=== PATIENT | male | born 1985 | race African-American/Black ===

== ENCOUNTER 2018-08-26 15:56 | Emergency (ER) | payer SELFPAY ==
[2018-08-26 15:56] VITALS: BP 175/114; PULSE 106; RESP 16; TEMP 36.4; O2SAT 100; BMI 24.0
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
[2018-08-26] MEDS: Diphth,Pertuss(Acell),Tet Vac 0.5 ML Vial IM (16:55)
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
== END 2018-08-26 17:24 | disposition home or self-care (01) ==
PROVIDERS: Emergency Provider Emergency Medicine; Family Provider Family Medicine; PCP Family Medicine
DX: S00.03XA Contusion of scalp, initial encounter (principal); S80.212A Abrasion, left knee, initial encounter; V89.2XXA Person injured in unspecified motor-vehicle accident, traffic, initial encounter; Y93.9 Activity, unspecified; Y92.410 Unspecified street and highway as the place of occurrence of the external cause; Y99.9 Unspecified external cause status; Z23 Encounter for immunization; I10 Essential (primary) hypertension; E11.9 Type 2 diabetes mellitus without complications; Z72.0 Tobacco use
CPT/HCPCS: 70450; 90715; 99283; A4216

== ENCOUNTER 2021-08-21 03:40 | Emergency (ER) | payer MEDICAID, SELFPAY ==
[2021-08-21 03:40] VITALS: BP 186/119; PULSE 105; RESP 18; TEMP 36.9; O2SAT 100; BMI 26.6
--- NOTE | 2021-08-21 03:57 | EX.ED.DYSGE1 ---
HPI History of Present Illness Chief Complaint: Sore Throat Informant: patient Narrative Narrative: Patient states that he started with a sore throat on Thursday sometime in the afternoon. He got a little worse on Thursday and now he came in early this morning. Its been going on for about 36 hours. He is able to eat and drink but it hurts to do so. He has had mild subjective fevers but none documented. No chest pain. He is handling secretions okay. Swallowing makes it worse and nothing specific makes it better. He has no known exposures. He states the whole throat hurts. Is not more sore on one side than the other. Of note, his blood pressure is up. But he has not taken his amlodipine or lisinopril today. Past medical history includes high blood pressure and mild diabetes Medication list reviewed No known allergies No recent surgeries Lives independently. [facility] Medical History (Updated 08/21/21 @ 03:[address] Arcadio Gama MD) Diabetes Hypertension no medical history Home Medications amlodipine 10 mg PO DAILY 08/21/21 [History Last Taken Unknown] glimepiride 2 mg PO DAILY 08/21/21 [History Last Taken Unknown] lisinopril 40 mg PO DAILY 08/21/21 [History Last Taken Unknown] metformin 1,000 mg PO BID 08/21/21 [History Last Taken Unknown] penicillin V potassium 500 mg PO 4X/DAY #40 tab 08/21/21 [Rx Last Taken Unknown] tramadol 50 mg PO Q6H PRN 3 Days #10 tab 08/21/21 [Rx Last Taken Unknown] Allergy/AdvReac Type Severity Reaction Status Date / Time No Known Allergies Allergy Verified 08/21/21 03:43 Surgical History History of tonsillectomy and adenoidectomy Social History Smoking Status: Current every day smoker tobacco type: cigarettes ROS ROS ED Constitutional Constitutional ED: Reports subjective ENT ENT ED: Reports sore throat; Denies ear pain or rhinorrhea Cardiovascular Cardiovascular: Denies chest pain or palpitations Respiratory/Chest Respiratory/Chest: Denies cough, dyspnea or sputum Gastrointestinal Gastrointestinal: Denies nausea or vomiting Musculoskeletal Musculoskeletal: Denies neck pain Integumentary Denies rash Neurologic Neurologic: Denies headache(s), paresthesias or weakness Allergic/Immunologic Allergic/Immunologic ED: Denies mouth swelling, tongue swelling or urticaria EXAM Physical Exam Const Vital Signs: 08/21/21 03:40 Temperature 98.4 F Temperature Source Oral Pulse Rate 105 H Respiratory Rate 18 Blood Pressure 186/119 H Blood Pressure Mean 141 Pulse Ox 100 Oxygen Delivery Method Room Air Positive well nourished and well developed General Appearance ED: well developed and NAD HEENT Reports moist mucous membranes HEENT Narrative: Patient does have strep odor in his mouth. He does have some exudate. He has reportedly had tonsils removed but there is some tonsillar tissue left. There is no asymmetry. Uvula hangs midline. No hot potato voice. He handles secretions normally. No dental pain. No sign of abscess. No Ludewig's. Negative for trauma or tenderness Eyes PERRL and EOMs intact bilaterally Neck supple Neck Narrative: Patient does have some slight superior anterior cervical lymph nodes on both sides. They are mild. There is no asymmetry. They are not large. There is no stridor. Chest Wall inspection of chest normal Resp normal respiratory effort and clear to auscultation bilaterally Cardio regular rate and regular rhythm GI non-tender Palpation: soft Back/Spine no CVA tenderness Neuro oriented x3 Sensorium / Orientation: alert Psych mental status grossly normal Skin no rashes or lesions noted MDM MDM MDM Narrative Medical decision making narrative: Patient has reported fevers at home. He has some exudate. He has isolated sore throat without other symptoms. He has strep odor to his breath. We will treat him as a strep pharyngitis. He will be given a dose of Decadron. He is about 36 hours into this. There is no clinical indication of abscess formation. I explained that if he gets worsening pain, swelling, lateralizing pain or inability to swallow foods or liquids he should return. Discharge Plan Triage Chief Complaint: Sore Throat ED Provider: Arcadio Gama Dx/Rx/DC Orders Clinical Impression: Pharyngitis, streptococcal, acute Instructions: ED Pharyngitis, Strep (Presumed) Prescriptions: New penicillin V potassium 250 MG tablet 500 mg PO 4X/DAY Qty: 40 RF: 0 tramadol 50 mg tablet 50 mg PO Q6H PRN (Reason: pain) 3 Days Qty: 10 RF: 0 No Action glimepiride 2 mg Tablet 2 mg PO DAILY RF: 0 amlodipine 10 mg Tablet 10 mg PO DAILY RF: 0 metformin 1,000 mg tablet 1,000 mg PO BID RF: 0 lisinopril 40 mg Tablet 40 mg PO DAILY RF: 0 Primary Care Provider: Jarrett Gracia Referrals: Jarrett Gracia MD [Primary Care Provider] - 3-5 Days if not improving Disposition Disposition: Home, Self Care
[2021-08-21] MEDS: Penicillin Vk 250 MG Tablet 500 MG PO (04:13)
[2021-08-21 04:22] VITALS: BP 116/111; PULSE 106; RESP 20; O2SAT 98
[2021-08-21] MEDS: dexAMETHasone 4 MG Tablet 10 MG PO (04:22)
--- NOTE | 2021-08-21 04:45 | ED.RN ---
patients s/o upset with noise level at the nurses station. advising staff that we do not care for the patient or his condition. s/o advised that patient is being registered and once registration was done nurse would be in with medications waiting for pharmacy to conform medications. at this time s/o yelling and cussing at registration. registration walked out of room and this nurse walked in with medications for patient. s/o wanted name of this nurse. provided name as Justo and I am the charge nurse rell. s/o asked why no one else wanted to come in. I advised due to her behavior no one wanted to come in and the charge nurse would be taking care of him. S/o wanted last name of this nurse. Advised s/o that we do not give out last names that Justo would be appropriate if she would like to file a complaint. Patient at this time has not said a word about patient care or concern. Patient given medication. S/o out at the nursing staff and was witnessed recording via video asking again for last name of this nurse. fellow staff refused to give last name. I spoke with s/o and advised we do not give out last names. patient given discharge instructions and no concerns from patient were addressed patient expressed verbal understanding of discharge instructions.
== END 2021-08-21 04:23 | disposition home or self-care (01) ==
PROVIDERS: Emergency Provider Emergency Medicine; PCP Family Medicine
DX: J02.0 Streptococcal pharyngitis (principal); F17.210 Nicotine dependence, cigarettes, uncomplicated; E11.9 Type 2 diabetes mellitus without complications; I10 Essential (primary) hypertension; Z79.84 Long term (current) use of oral hypoglycemic drugs
CPT/HCPCS: 99283

== ENCOUNTER 2021-12-17 13:05 | Emergency (ER) | payer MEDICAID, SELFPAY ==
[2021-12-17 13:06] VITALS: BP 162/105; PULSE 106; RESP 17; TEMP 36.7; O2SAT 100; BMI 27.2
--- NOTE | 2021-12-17 13:07 | ED.RN ---
PT STATES THE BITE TOOK PLACE IN [facility]
--- NOTE | 2021-12-17 13:08 | RAD_ITS ---
STUDY: X-RAY - LEFT RADIUS AND ULNA REASON FOR EXAM: Male, 36 years old. Dog bite mid forearm. TECHNIQUE: 2 view(s) of the forearm. COMPARISON: None. FINDINGS: There is no demonstrated soft tissue swelling. No radiopaque foreign body is seen. Normal visualized radius. Normal visualized ulna. RAD/Forearm 2 Views IMPRESSION: Normal x-ray examination of the radius and ulna. Electronically Signed: Hesham Garza MD at 14:08 EST ,
--- NOTE | 2021-12-17 15:24 | EX.ED.GENINJ ---
HPI History of Present Illness Chief Complaint: Bite Informant: patient Narrative Narrative: Patient was bit by a friend's dog last night about 10 PM. He states the dog was acting fine and then suddenly just bit his left arm. He states it is a rescue dog with some challenges. As a rescue, it would have up-to-date immunizations and was overall acting normally. Patient has no numbness tingling or weakness. It did break the skin in several areas. The area has been cleaned. [facility] Medical History (Updated 12/17/21 @ 15:[address] Arcadio Gama MD) Diabetes Hypertension Home Medications amlodipine 10 mg PO DAILY 08/21/21 [History Last Taken Unknown] glimepiride 2 mg PO DAILY 08/21/21 [History Last Taken Unknown] lisinopril 40 mg PO DAILY 08/21/21 [History Last Taken Unknown] metformin 1,000 mg PO BID 08/21/21 [History Last Taken Unknown] amoxicillin-pot clavulanate 1 tab PO BID #10 tab 12/17/21 [Rx Last Taken Unknown] Allergy/AdvReac Type Severity Reaction Status Date / Time No Known Allergies Allergy Verified 08/21/21 03:43 Surgical History History of tonsillectomy and adenoidectomy Social History Smoking Status: Current every day smoker tobacco type: cigarettes ROS ROS ED Constitutional Constitutional ED: Denies chills or fever(s) Musculoskeletal Musculoskeletal: Reports other Details: Dog bite left forearm as in history of present illness. Integumentary Reports Abrasions and other Details: Abrasions and slight puncture to left forearm. Neurologic Neurologic: Denies paresthesias or weakness Endocrine Endocrinology: Denies polydipsia or polyuria Hematologic/Lymphatic Hematologic/Lymphatic: Denies easy bleeding or easy bruising EXAM Physical Exam Const Vital Signs: 12/17/21 13:06 Temperature 98.1 F Temperature Source Temporal Pulse Rate 106 H Respiratory Rate 17 Blood Pressure 162/105 H Blood Pressure Mean 124 Pulse Ox 100 Oxygen Delivery Method Room Air Positive well nourished General Appearance ED: NAD HEENT atraumatic Resp normal respiratory effort Extremity Extremity Narrative: Patient has a puncture on the left forearm that is about 4 mm long. There are also several abrasions near it. This is consistent with his injury. There is no significant erythema or streaking. No lymphatic streaking up the arm. No proximal lymphadenopathy. Neuro moves all extremities and no sensory deficits noted Sensorium / Orientation: alert Motor Exam: strength 5/5 throughout Psych mental status grossly normal Skin Skin Narrative: Abrasions as above. MDM MDM MDM Narrative Medical decision making narrative: Patient has a dog bite that about 17 hours old. No indication for need for rabies. The area has been cleaned. We will start Augmentin for about 5 days. We discussed signs of infection and reasons to return. 2 view x-ray of the forearm read by radiology and looked at by me shows no sign of acute process. No fracture. No radiodense foreign body. Radiography Diagnostic Testing: Clinical Impression(s) from Imaging Studies Forearm X-Ray 12/17/21 13:08 IMPRESSION: Normal x-ray examination of the radius and ulna. Electronically Signed: Hesham Garza MD at 14:08 EST , Discharge Plan Triage Chief Complaint: Bite ED Provider: Arcadio Gama Dx/Rx/DC Orders Clinical Impression: Dog bite of left forearm Instructions: ED Dog Bite Prescriptions: New amoxicillin-pot clavulanate 875-125 mg tablet 1 tab PO BID Qty: 10 RF: 0 No Action glimepiride 2 mg Tablet 2 mg PO DAILY RF: 0 amlodipine 10 mg Tablet 10 mg PO DAILY RF: 0 metformin 1,000 mg tablet 1,000 mg PO BID RF: 0 lisinopril 40 mg Tablet 40 mg PO DAILY RF: 0 Primary Care Provider: Jarrett Gracia Referrals: Jarrett Gracia MD [Primary Care Provider] - 3-5 Days if not improving Disposition Disposition: Home, Self Care
[2021-12-17] MEDS: Amox/Clavulanate 875 MG Tablet PO (15:35)
[2021-12-17 15:36] VITALS: RESP 18
== END 2021-12-17 15:37 | disposition home or self-care (01) ==
LOC: ED 15:34
PROVIDERS: Emergency Provider Emergency Medicine; PCP Family Medicine; Visit Provider Emergency Medicine
DX: S51.832D Puncture wound without foreign body of left forearm, subsequent encounter (principal); E11.9 Type 2 diabetes mellitus without complications; W54.0XXD Bitten by dog, subsequent encounter; I10 Essential (primary) hypertension; F17.210 Nicotine dependence, cigarettes, uncomplicated
CPT/HCPCS: 73090; 99283

== ENCOUNTER 2022-05-08 09:41 | Outpatient (RCR) | payer MEDICAID, SELFPAY ==
[2022-05-08 13:18] VITALS: BP 117/87; PULSE 74; TEMP 36.1
--- NOTE | 2022-05-08 13:44 | HP.PCM_ITS ---
History of Present Illness Date of Service: 05/08/22 Chief Complaint: Subfourth metatarsal ulceration right foot History of Wound: This is a 37-year-old male who presents to the wound care center by referral of Dr. Miguel Angel DPM. Patient has history of diabetes with a previous A1c of 9.8% currently down to 7.5%. Patient is a former smoker who has stopped smoking within the last few months. He does currently use marijuana daily. He has an ulceration to the plantar fourth metatarsal head of the right foot with callus to the subfirst metatarsal head and subfifth metatarsal head of the right foot. He also has callus subfirst metatarsal head and subfourth metatarsal head of the left foot. He is currently being offloaded in a cam walker with Pegasus offloading pad to the right foot in a surgical shoe with Pegasus offloading pad to the left foot. He did undergo biopsy of the ulceration site by Dr. Michelle which was negative. Patient has been noncompliant in his offloading to both feet preferring to wear tennis shoes or going barefoot with a sock. Previous treatments consist of Aquacel, Santyl, and Geri. He was referred to the wound care center for a second opinion on wound care products versus surgical procedure to aid in offloading and reducing pressure at the forefoot. [facility] Medical History (Updated 05/08/22 @ 14:[address] Puma Otero DPM) Diabetes Hypertension Home Medications amlodipine 10 mg tablet 10 mg PO DAILY 08/21/21 [History Last Taken Unknown] glimepiride 2 mg tablet 2 mg PO DAILY 08/21/21 [History Last Taken Unknown] lisinopril 40 mg tablet 40 mg PO DAILY 08/21/21 [History Last Taken Unknown] metformin 1,000 mg tablet 1,000 mg PO BID 08/21/21 [History Last Taken Unknown] amoxicillin 875 mg-potassium clavulanate 125 mg tablet 1 tab PO BID #10 tabs 12/17/21 [Rx Last Taken Unknown] Allergy/AdvReac Type Severity Reaction Status Date / Time No Known Allergies Allergy Verified 08/21/21 03:43 Surgical History History of tonsillectomy and adenoidectomy Social History Smoking Status: Current every day smoker tobacco type: cigarettes ROS Constitutional Constitutional: Denies chills, fatigue, fever(s) or malaise Eyes Eyes: Denies blurry vision, change in vision or double vision ENT HEENT: Denies dysphagia, nasal congestion, nasal discharge or sore throat Cardiovascular Cardiovascular: Denies chest pain, claudication or dyspnea Respiratory/Chest Respiratory/Chest: Denies cough, productive cough or shortness of breath at rest Gastrointestinal Gastrointestinal: Denies abdominal pain, constipation, diarrhea, nausea or vomiting Genitourinary Genitourinary: Denies dysuria, hematuria, urinary frequency or urinary hesitancy Musculoskeletal Musculoskeletal: Denies joint pain, joint stiffness, joint swelling, numbness or tingling Integumentary Integumentary: Denies jaundice, nail changes, pruritus or rash Neurologic Neurologic: Denies dizziness, headache(s), seizures or weakness Psychiatric Psychiatric: Denies anxiety or depression Endocrine Endocrinology: Denies cold intolerance, heat intolerance, polydipsia or polyuria Hematologic/Lymphatic Hematologic/Lymphatic: Denies easy bleeding or easy bruising Vital Signs Vital Signs Vital Signs: 05/08/22 13:18 Temperature 97.0 F L Temperature Source Temporal Pulse Rate 74 Blood Pressure 117/87 H Blood Pressure Mean 97 Blood Pressure Source Monitor Blood Pressure Position Semi-Fowlers Blood Pressure Location Right Arm Physical Exam Const alert, oriented x3 and no apparent distress General Appearance: cooperative and comfortable HEENT normocephalic Eyes General Eye: normal appearance of both eyes Neck General: normal visual inspection Lymph Lymphatic: no lymphadenopathy noted and no lymphedema noted Chest inspection of chest normal Resp normal respiratory effort Cardio regular rate and regular rhythm GI soft to palpation and non-tender Back/Spine no CVA tenderness and normal ROM Extremity normal capillary refill, no joint enlargement, no calf tenderness and no pedal edema Peripheral Pulses: Yes posterior tibial pulses present bilateral and dorsalis pedis pulses present bilateral Skin no rashes or lesions noted, skin turgor normal and no jaundice Wound Narrative: Right foot: Subfourth metatarsal ulceration measuring 1 cm x 0.7 cm x 0.2 cm with hyperkeratotic rim. No signs of infection. Callus/hyperkeratotic tissue that is preulcerative noted to the subfirst metatarsal head and subfifth metatarsal head. No signs of infection Left foot: Callus/hyperkeratotic tissue that is pre-ulcerative noted to the subfirst metatarsal head and subfourth metatarsal head. No signs of infection. Neuro oriented x3 and moves all extremities Motor Exam: strength 5/5 throughout Psych cooperative and affect normal Debridement Note Debridement Note Wound debrided: Subfourth metatarsal Laterality: Right Wound Grade/Stage: Morales stage I Type of Debridement: Excisional debridement Anesthesia Used: 5% Lidocaine Gel Depth: Down to and including healthy tissue and in the subcutaneous layer Percentage of wound debrided: 100 Instrument Used: #15 blade Tissue Removed: Fibrous, devitalized subcutaneous, biofilm, slough Severity: Fat Layer Exposed Amount of bleeding with debridement: Mild Bleeding Controlled with: Compression and gauze Patient tolerated procedure: Patient tolerated procedure well Post-Debridement Measurements and Additional Note: Post-Debridement Measurements/Treatment - Nurse 1 - General Ulcer Assessment Start: 05/08/22 11:53 Freq: Status: Active Protocol: FAB Activity Type Activity Date Activity User E-sign Co-sign Detail Recorded Client Recorded Date Recorded By Document 05/08/22 13:18 ADENIKE [id number] 05/08/22 13:21 ADENIKE 05/08/22 13:18 - Today's Visit Information Type of service Follow-up Visit (Physician/DOOR REPAIRMAN ) Arrival Mode Ambulatory Patient Identification Verified (Name & Yes ) Vital Signs Temperature (97.8 F-99.1 F) 97.0 F L Temperature Source Temporal Pulse Rate (60-100) 74 Pulse Location Monitor Blood Pressure (90/60-120/80) 117/87 H Blood Pressure Mean 97 Source Monitor Position Semi-Fowlers Blood Pressure Location Right Arm History Since Last Visit- (Skip if this is Patient's initial visit) Have you changed medications since your No last visit? Any new allergies or adverse reactions No Had a fall/change in ADL's that may No increase risk of falls Signs or symptoms of abuse and/or No neglect since last visit Have you been in the hospital since your No last visit? Has dressing in place as prescribed Yes Has compression in place as prescribed N/A Has offloadiing in place as prescribed N/A Experienced any changes in pain level or No management Left Footwear Regular Shoe Right Footwear Regular Shoe Pain Scale: 0-10 Numeric Is Patient Pain Free? Yes - Nurse 1 - General Ulcer Measurement Start: 05/08/22 11:53 Freq: Status: Active Protocol: Activity Type Activity Date Activity User E-sign Co-sign Detail Recorded Client Recorded Date Recorded By Document 05/08/22 13:18 ADENIKE [id number] 05/08/22 13:21 ADENIKE 05/08/22 13:18 Wound Center Nurse 1 #1 Right Foot -Current Size (cm) - Length 0.2 -Current Size (cm) - Width 0.5 -Current Size (cm) - Depth 0.3 -Total Square Cm 0.10 -Exudate Amt Medium -Exudate Type Serosanguineous -Wound Margin Distinct, Outline Attached -Granulation Amt Large (67-100%) -Granulation Quality Red -Necrosis Amt None Present (0 %) -Texture (Mirlande-wound Skin Appearance) Assessed, Scarring -Moisture ([place]-wound Skin Appearance) No Abnormality, Assessed -Color ([place]-wound Skin Appearance) No Abnormality, Assessed -Temperature ([place]-wound Skin No Abnormality Appearance) (Pt Warm) -Tenderness on Palpation ([place]-wound No Skin Appearance) -Ulcer Cleansing Rinsed/ Irrigated with Saline -Foul Odor after Cleansing No -Anesthetic Used 5% Lidocaine Gel Assessment/Plan Assessment/Plan (1) Chronic ulcer of right foot with fat layer exposed: CODE(S): L97.512 - Non-pressure chronic ulcer of other part of right foot with fat layer exposed (2) Callus under metatarsal head: CODE(S): L84 - Corns and callosities (3) Equinus deformity of right foot: CODE(S): M21.6X1 - Other acquired deformities of right foot (4) Equinus deformity of left foot: CODE(S): M21.6X2 - Other acquired deformities of left foot (5) Hammer toe of right foot: CODE(S): M20.41 - Other hammer toe(s) (acquired), right foot (6) Hammertoe of left foot: CODE(S): M20.42 - Other hammer toe(s) (acquired), left foot (7) Diabetes: CODE(S): E11.9 - Type 2 diabetes mellitus without complications (8) Fat pad atrophy of foot: CODE(S): L90.9 - Atrophic disorder of skin, unspecified PLAN: Plan Patient seen and evaluated Left foot: Pre-ulcerative hyperkeratotic lesions subfirst metatarsal head and subfourth metatarsal head. These are currently closed with no signs of infection. I discussed with him how these could become potential wounds if not properly offloaded. He is currently offloading with surgical shoe with Pegasus offloading insert. I examined insert which was inadequately offloading these ulcerative sites. I removed more of the pegs to properly offload and added plantar offloading padding. He was instructed to continue use of his urea cream to the sites. Right foot: Ulceration subfourth metatarsal head measuring 1 cm x 0.7 cm x 0.2 cm. Ulceration demonstrates no signs of infection with a good granular base and a hyperkeratotic rim. Ulceration site underwent debridement as noted in clinical panel above. Preulcerative hyperkeratotic lesion subfirst metatarsal head and subfifth metatarsal head. These are currently closed with no signs of infection. He is currently offloading in a CAM boot with Pegasus offloading insert. I examined this offloading site and added additional offloading padding to the plantar aspect of the insert to properly offload the first, fourth, and fifth metatarsal heads. Ulceration site dressed with Geri, hydrogel, dry sterile dressing. I am considering epi fix graft placement at next visit. I discussed with him today proper glycemic control, continuing with not smoking, and wearing his offloading shoes at all times. Patient has history of being noncompliant in wearing his offloading shoes to both feet preferring basketball shoes or going barefoot/socks. I discussed with him today that being barefoot or wearing only socks does not provide adequate protection to the foot and places him at higher risk of wounds. I also stated that being diabetic with wounds places him at higher risk of infection which may lead to loss of limb. I also discussed how pressure reduction at the sites is essential and is the sanches to healing his wounds. He voices understanding of our discussion today. On examination he is also noted to have an equinus deformity of both legs with decreased fat pad to the forefoot. I discussed sending him to physical therapy to aid in improving his range of motion/stretching as well as developing a home exercise program to improve his range of motion in dorsiflexion to decrease forefoot pressure. Rx for physical therapy dispensed today. I discussed with him that if this does not work to aid in offloading that we may have to undergo a tendo Achilles lengthening to aid in decreasing pressure to the forefoot. Given his noncompliance of not adequately staying off his feet enough/wearing offloading shoes, I worry he may not be fully compliant post surgery. The following work up and care recommendations were made: Dressing: Geri, hydrogel, dry sterile dressing right foot Wash: Soap and water Tissue growth optimization: Geri and hydrogel Offload: Continue offloading in cam boot with plantar offloading pad to the right foot in surgical shoe with plantar offloading pad to the left foot Vascular: Palpable pedal pulses bilateral Edema: No pedal edema noted Infection: No signs of infection noted Pain: Pain is well controlled Host factors: DM type II, fat pad atrophy, equinus deformity bilateral, chronic marijuana use I answered all the patient's questions. To return to the wound healing center in 1 week or call sooner if the patient has any questions or concerns. Note: [employer] speech recognition air transportation provider software was used to create portions of this document. Sound-alike and misspelled words, as well as other air transportation provider errors may be contained in the documentation. The problems addressed require a low medical decision making level which includes two or more minor problems, a stable chronic illness, or an acute uncomplicated illness or injury. The medical decision making level is low. There is noted low risk of morbidity after considering this treatment plan and diagnostic data.
== END 2022-05-25 23:59 | disposition home or self-care (01) ==
LOC: WC 09:41
PROVIDERS: PCP Family Medicine; Visit Provider Student in an Organized Health Care Education/Training Program
DX: E11.621 Type 2 diabetes mellitus with foot ulcer (principal); L97.512 Non-pressure chronic ulcer of other part of right foot with fat layer exposed; M20.42 Other hammer toe(s) (acquired), left foot; M21.6X2 Other acquired deformities of left foot; M21.6X1 Other acquired deformities of right foot; Z87.891 Personal history of nicotine dependence; I10 Essential (primary) hypertension; M20.41 Other hammer toe(s) (acquired), right foot; L84 Corns and callosities; L90.9 Atrophic disorder of skin, unspecified
CPT/HCPCS: 11042; 99213; G0463

== ENCOUNTER 2022-06-09 11:30 | Outpatient (RCR) | payer MEDICAID, SELFPAY ==
--- NOTE | 2022-05-16 13:32 | HP.PTEVAL ---
Patient's Visit Information MEENU BOLIVAR is a 37 year old M referred to Physical Therapy by Dr. Puma Otero DPM with a diagnosis of . Date of Evaluation: 05/16/22 Physical Therapist: Mundo Lara, PT, Cert MDT, OCS - Visit Plan Frequency: 2x /Week Duration: 4 Weeks Plan: CAM BOOT ON PER MD. PT INTERVETIONS WITH FLEXABILITY G-S ,ROM ,ANKLE ,STRENGTHNEING ANKLE STABILZERS ,AND FUNCTION STRENGTHENING TO MINIMIZE TOE PRESSURE - Subjective This 37 y/o male presents to physical therapy with right foot pain. Patient has had problems with right foot ~ 1 year with ulcer bottom of foot for~ 1month seen DR Otero at wound clinic . Placed in CAM BOOT . Patient has had problems with callouses on foot, recommended PT for stretching and strengthening. CAM BOOT on until further notification . cleaned callouses. Denies paresthesia/tingling . Patient has x-rays at office. Patient condition affects function with gait and mobility. Patient states walking on forefoot causes this impairments. Patient goal return to walking and normal activity. Patient is diabetic. SOCAIL: unemployed. 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 SKIN: small ulcer plantar aspect of metatarsal great toe. NEURO: denies paresthesia/tingling-light touch intact. GAIT: ambulates with CAM boot with decrease stance time. AROM: dorsiflexion 10 from 0 ,plantarflexion 55 degrees, eversion 5 degrees , inversion 30 degrees. FLEXABILITRY: G-S MOD TIGHT. MMT : anteriortibialis ,posteriortibilas 4/5,pernous 4/5,G-S peak force 24.7 - Balance/Special Test Scores Lower Extremity Functional Score: 42 - Goals Goal 1:: Patient to be I with HEP for foot. Goal Time Frame: 4-6 Weeks Goal 2:: Patient to improve function by 50 % with gait .and ADLS' Goal Time Frame: 4-6 Weeks Goal 3:: Patient to improve peak force G-S by 5-10 to improve gait Goal Time Frame: 4-6 Weeks Goal 4:: Patient to improve G-S flexibility by increase DF by 5-10 degrees to decrease pressure great toe. Goal Time Frame: 4-6 Weeks Goal 5:: Patient to improve LFES score by 10 points to improve QOL Goal Time Frame: 4-6 Weeks - Rehabilitation Potential Physical Therapy Diagnosis: This patient has ulcer plantar aspect of great toe with decrease ROM, strength ,tight calf ,poor heealing thus impairs gait Rehabilitation Potential: Good - Anticipated Interventions Thank you for the opportunity to evaluate your patient. For Medicare and Medicare HMO plans, please review the plan of care and approve it. It will need to be FAXED BACK to us at [phone] for Medicare purposes. For Medicare only, by signing this I certify the plan of care. Please let me know if there are questions or concerns regarding this plan of care. Physician Signature: Date:
--- NOTE | 2022-09-26 08:16 | HP.PT.NRP ---
MEENU BOLIVAR was seen in my office for initial evaluation on 05/16/22. The following Plan of Care was established for this patient: Initial Frequency: 2x /Week Initial Duration: 4 Weeks This patient was last seen in our office . Pertinent comments regarding their Physical therapy will appear below: Patient was seen for PT chronic ulcer foot and acquired deformity for ROM /strengthening ,doing well thus is d/c At this point I will be discontinuing this patient from physical therapy. I would be happy to see this patient again in the future if found appropriate by the physician. Thank you! Mundo Lara, PT, Cert MDT, OCS Balance/Gait/Functional tests - Balance/Special Test Scores Lower Extremity Functional Score: 42
== END 2022-06-09 19:00 | disposition home or self-care (01) ==
LOC: PT 11:30
PROVIDERS: PCP Family Medicine; Referring Provider Student in an Organized Health Care Education/Training Program; Visit Provider Student in an Organized Health Care Education/Training Program
DX: L97.522 Non-pressure chronic 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 (principal); M21.6X1 Other acquired deformities of right foot; M21.6X2 Other acquired deformities of left foot
CPT/HCPCS: 97110; 97140; 97162

== ENCOUNTER 2022-06-19 08:15 | Outpatient (RCR) | payer MEDICAID, SELFPAY ==
[2022-05-26 00:38] VITALS: BP 117/87; PULSE 74; TEMP 36.1
[2022-06-12 08:26] VITALS: BP 155/78; PULSE 117; TEMP 36.1
--- NOTE | 2022-06-12 09:28 | PCM.WC.PN ---
History of Present Illness Date of Service: 06/12/22 Chief Complaint: Subfourth metatarsal ulceration right foot History of Wound: This is a 37-year-old male who presents to the wound care center by referral of Dr. Miguel Angel DPM. Patient has history of diabetes with a previous A1c of 9.8% currently down to 7.5%. Patient is a former smoker who has stopped smoking within the last few months. He does currently use marijuana daily. He has an ulceration to the plantar fourth metatarsal head of the right foot with callus to the subfirst metatarsal head and subfifth metatarsal head of the right foot. He also has callus subfirst metatarsal head and subfourth metatarsal head of the left foot. He is currently being offloaded in a cam walker with Pegasus offloading pad to the right foot in a surgical shoe with Pegasus offloading pad to the left foot. He did undergo biopsy of the ulceration site by Dr. Michelle which was negative. Patient has been noncompliant in his offloading to both feet preferring to wear tennis shoes or going barefoot with a sock. Previous treatments consist of Aquacel, Santyl, and Geri. He was referred to the wound care center for a second opinion on wound care products versus surgical procedure to aid in offloading and reducing pressure at the forefoot. Subjective Subjective This is a 37-year-old male who presents for follow-up to the wound care clinic with subfourth metatarsal ulceration of the right foot and subfourth metatarsal ulceration to the left foot. He has callus formation subfirst metatarsal head bilateral and to the subfifth metatarsal head of the right foot with history of wounds at the sites. He states he has been going to physical therapy to improve flexibility and range of motion at the ankle and has been performing the home exercises as instructed. He denies any constitutional symptoms today. He has no further complaints today. Objective Data Objective Data Vital Signs: Vital Signs Temp Pulse BP 97.0 F L 117 H 155/78 H 06/12/22 08:26 06/12/22 08:26 06/12/22 08:26 Physical Exam Const alert, oriented x3 and no apparent distress General Appearance: cooperative and comfortable HEENT normocephalic Eyes General Eye: normal appearance of both eyes Neck General: normal visual inspection Lymph Lymphatic: no lymphadenopathy noted and no lymphedema noted Chest inspection of chest normal Resp normal respiratory effort Cardio regular rate and regular rhythm Extremity normal capillary refill, no joint enlargement, no calf tenderness and no pedal edema Peripheral Pulses: Yes posterior tibial pulses present bilateral and dorsalis pedis pulses present bilateral Skin no rashes or lesions noted, skin turgor normal and no jaundice Wound Narrative: Right foot: Subfourth metatarsal ulceration measuring 1 cm x 1.0 cm x 0.2 cm with hyperkeratotic rim. Subfifth metatarsal ulceration measuring 0.6 cm x 0.4 cm x 0.1 cm no signs of infection. Callus/hyperkeratotic tissue that is preulcerative noted to the subfirst metatarsal head. No signs of infection to ulcerative sites Left foot: Callus/hyperkeratotic tissue that is pre-ulcerative noted to the subfirst metatarsal head.?No signs of infection. Ulceration noted to the subfourth metatarsal head with surrounding hyperkeratosis ulceration measures 1 cm x 1 cm x 0.2 cm. No signs of infection. Neuro oriented x3 and moves all extremities Debridement Note Debridement Note Wound debrided: Subfourth metatarsal right foot Laterality: Right Wound Grade/Stage: Morales stage I Type of Debridement: Excisional debridement Anesthesia Used: 5% Lidocaine Gel Depth: Down to and including healthy tissue and in the subcutaneous layer Percentage of wound debrided: 100 Instrument Used: 3mm curette and - (313 blade) Tissue Removed: Fibrous, devitalized subcutaneous, biofilm, slough Severity: Fat Layer Exposed Amount of bleeding with debridement: Mild Bleeding Controlled with: Compression and gauze Patient tolerated procedure: Patient tolerated procedure well Post-Debridement Measurements and Additional Note: Post-Debridement Measurements/Treatment - Nurse 1 - General Ulcer Assessment Start: 06/12/22 08:25 Freq: Status: Active Protocol: [email or web address] Activity Type Activity Date Activity User E-sign Co-sign Detail Recorded Client Recorded Date Recorded By Document 06/12/22 08:26 ADENIKE [id number] 06/12/22 08:27 ADENIKE 06/12/22 08:26 - Today's Visit Information Type of service Follow-up Visit (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 Any new allergies or adverse reactions No Had a fall/change in ADL's that may No increase risk of falls Signs or symptoms of abuse and/or No neglect since last visit Have you been in the hospital since your No last visit? Has dressing in place as prescribed Yes Has compression in place as prescribed N/A Has offloadiing in place as prescribed N/A Experienced any changes in pain level or No management Left Footwear Regular Shoe Right Footwear Regular Shoe Pain Scale: 0-10 Numeric Is Patient Pain Free? Yes SEBASTIEN - Nurse 1 - General Ulcer Measurement Start: 06/12/22 08:25 Freq: Status: Active Protocol: Activity Type Activity Date Activity User E-sign Co-sign Detail Recorded Client Recorded Date Recorded By Document 06/12/22 08:26 ADENIKE [id number] 06/12/22 08:27 ADENIKE 06/12/22 08:26 Wound Center Nurse 1 #1 Right Foot -Current Size (cm) - Length 1.2 -Current Size (cm) - Width 0.5 -Current Size (cm) - Depth 0.6 -Total Square Cm 0.60 -Exudate Amt Small -Exudate Type Serosanguineous -Wound Margin Distinct, Outline Attached -Granulation Amt Small (1-33%) -Granulation Quality [place] -Necrosis Amt Small (1-33%) -Necrotic Tissue Type Adherent Slough -Texture ([place]-wound Skin Appearance) Assessed,Callus ,Scarring -Moisture ([place]-wound Skin Appearance) No Abnormality, Assessed -Color ([place]-wound Skin Appearance) No Abnormality, Assessed -Temperature ([place]-wound Skin No Abnormality Appearance) (Pt Warm) -Tenderness on Palpation ([place]-wound No Skin Appearance) -Ulcer Cleansing Rinsed/ Irrigated with Saline -Foul Odor after Cleansing No -Anesthetic Used 5% Lidocaine Gel WC - Nurse 3 - General Ulcer D/C NN Start: 06/12/22 08:25 Freq: Status: Active Protocol: Activity Type Activity Date Activity User E-sign Co-sign Detail Recorded Client Recorded Date Recorded By Document 06/12/22 09:06 ADENIKE [id number] 06/12/22 09:07 ADENIKE 06/12/22 09:06 Wound Care Nurse 3 -Ulcer Cleansing Rinsed/ Irrigated with Saline -Primary Dressing Applied C Hydrogel ($), Promogran Geri Matter -Primary Dressing Covered/Secured with Dry Gauze, Secured with Tape -Promogran Geri Matter 1 Pain Scale: 0-10 Numeric Is Patient Pain Free? Yes WC - Visit Discharge Discharge Condition Stable Ambulatory Status Ambulatory Transportation Private Auto Additional Wound Wound debrided: Subfifth metatarsal right foot Laterality: Right Wound Grade/Stage: Morales stage I Type of Debridement: Excisional debridement Anesthesia Used: 5% Lidocaine Gel Depth: Down to and including healthy tissue and in the subcutaneous layer Percentage of wound debrided: 100 Instrument Used: 3mm curette and - (313 blade) Tissue Removed: Fibrous, devitalized subcutaneous, biofilm, slough Severity: Fat Layer Exposed Amount of bleeding with debridement: Mild Bleeding Controlled with: Compression and gauze Patient tolerated procedure: Patient tolerated procedure well Additional Wound Wound debrided: Subfourth metatarsal left foot Laterality: Left Wound Grade/Stage: Morales stage I Type of Debridement: Excisional debridement Anesthesia Used: 5% Lidocaine Gel Depth: Down to and including healthy tissue and in the subcutaneous layer Percentage of wound debrided: 100 Instrument Used: 3mm curette and - (313 blade) Tissue Removed: Fibrous, devitalized subcutaneous, biofilm, slough Severity: Fat Layer Exposed Amount of bleeding with debridement: Mild Bleeding Controlled with: Compression and gauze Patient tolerated procedure: Patient tolerated procedure well Assessment/Plan Assessment/Plan (1) Non-pressure chronic 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: CODE(S): L97.522 - Non-pressure chronic 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 (2) Chronic ulcer of right foot with fat layer exposed: CODE(S): L97.512 - Non-pressure chronic ulcer of other part of right foot with fat layer exposed (3) Diabetes: CODE(S): E11.9 - Type 2 diabetes mellitus without complications (4) Callus under metatarsal head: CODE(S): L84 - Corns and callosities (5) Equinus deformity of right foot: CODE(S): M21.6X1 - Other acquired deformities of right foot (6) Equinus deformity of left foot: CODE(S): M21.6X2 - Other acquired deformities of left foot (7) Fat pad atrophy of foot: CODE(S): L90.9 - Atrophic disorder of skin, unspecified (8) Hammer toe of right foot: CODE(S): M20.41 - Other hammer toe(s) (acquired), right foot (9) Hammertoe of left foot: CODE(S): M20.42 - Other hammer toe(s) (acquired), left foot PLAN: Plan Patient seen and evaluated Left foot: Pre-ulcerative hyperkeratotic lesions subfirst metatarsal head, this was debrided with a 313 blade. No underlying wound. Ulceration subfourth metatarsal head measures 1 cm x 1 cm x 0.2 cm. Ulceration underwent debridement as noted in clinical panel above. No signs of infection. He is currently offloading with surgical shoe with Pegasus offloading insert.? However I doubt he is wearing his offloading shoe to the left foot as he has history of noncompliance and going barefoot or in basketball shoes. Right foot: Ulceration subfourth metatarsal head measuring 1 cm x 1.0 cm x 0.2 cm.? Ulceration demonstrates no signs of infection with a good granular base and a hyperkeratotic rim.? Ulceration subfifth metatarsal head measures 0.6 cm x 0.4 cm x 0.1 cm. Ulceration sites underwent debridement as noted in clinical panel above.? Preulcerative hyperkeratotic lesion subfirst metatarsal head.?No signs of infection.? He is currently offloading in a CAM boot with Pegasus offloading insert.? I suspect noncompliance at this site as well as stated above due to increased size of the subfourth metatarsal ulceration and new open ulceration of the sub-fifth metatarsal. Ulceration sites dressed with Geri, hydrogel, dry sterile dressing.? I will considering epi fix graft placement at next visit. I discussed with him today proper glycemic control, continuing with not smoking, and wearing his offloading shoes at all times.? Patient has history of being noncompliant in wearing his offloading shoes to both feet preferring basketball shoes or going barefoot/socks. I discussed with him again today that being barefoot or wearing only socks does not provide adequate protection to the foot and places him at higher risk of wounds. I also stated that being diabetic with wounds places him at higher risk of infection which may lead to loss of limb.? I also discussed how pressure reduction at the sites is essential and is the sanches to healing his wounds. He voices understanding of our discussion today. I discussed the need to return for weekly debridement and not return whenever he feels like it. On examination he is also noted to have an equinus deformity of both legs with decreased fat pad to the forefoot.? He is attending physical therapy sessions to aid in improving his range of motion/stretching as well as developing a home exercise program to improve his range of motion in dorsiflexion to decrease forefoot pressure. I discussed with him that if this does not work to aid in offloading that we may have to undergo a tendo Achilles lengthening to aid in decreasing pressure to the forefoot. Given his noncompliance of not adequately staying off his feet enough/wearing offloading shoes, I worry he may not be fully compliant post surgery. The following work up and care recommendations were made: Dressing: Geri, hydrogel, dry sterile dressing right foot Wash: Soap and water Tissue growth optimization: Geri and hydrogel Offload: Continue offloading in cam boot with plantar offloading pad to the right foot in surgical shoe with plantar offloading pad to the left foot Vascular: Palpable pedal pulses bilateral Edema: No pedal edema noted Infection: No signs of infection noted Pain: Pain is well controlled Host factors: DM type II, fat pad atrophy, equinus deformity bilateral, chronic marijuana use ? I answered all the patient's questions.? To return to the wound healing center in 1 week or call sooner if the patient has any questions or concerns. Note: [employer] speech recognition wharf tender software was used to create portions of this document. Sound-alike and misspelled words, as well as other wharf tender errors may be contained in the documentation.
[2022-06-19 08:41] VITALS: BP 147/88; PULSE 66; TEMP 36.1
--- NOTE | 2022-06-19 09:34 | PN.PCM_ITS ---
History of Present Illness Date of Service: 06/19/22 Chief Complaint: Subfourth metatarsal ulceration right foot History of Wound: This is a 37-year-old male who presents to the wound care center by referral of Dr. Miguel Angel DPM. Patient has history of diabetes with a previous A1c of 9.8% currently down to 7.5%. Patient is a former smoker who has stopped smoking within the last few months. He does currently use marijuana daily. He has an ulceration to the plantar fourth metatarsal head of the right foot with callus to the subfirst metatarsal head and subfifth metatarsal head of the right foot. He also has callus subfirst metatarsal head and subfourth metatarsal head of the left foot. He is currently being offloaded in a cam walker with Pegasus offloading pad to the right foot in a surgical shoe with Pegasus offloading pad to the left foot. He did undergo biopsy of the ulceration site by Dr. Michelle which was negative. Patient has been noncompliant in his offloading to both feet preferring to wear tennis shoes or going barefoot with a sock. Previous treatments consist of Aquacel, Santyl, and Geri. He was referred to the wound care center for a second opinion on wound care products versus surgical procedure to aid in offloading and reducing pressure at the forefoot. Subjective Subjective This is a 37-year-old male who presents for follow-up to the wound care clinic with subfourth metatarsal ulceration of the right foot and subfourth metatarsal ulceration to the left foot.? He has callus formation subfirst metatarsal head bilateral and to the subfifth metatarsal head of the right foot with history of wounds at the sites.? He states he has been going to physical therapy to improve flexibility and range of motion at the ankle and has been performing the home exercises as instructed. He has remained in his offloading shoes to both feet. He denies any constitutional symptoms today.? He has no further complaints today. Objective Data Objective Data Vital Signs: Vital Signs Temp Pulse BP 97.0 F L 66 147/88 H 06/19/22 08:41 06/19/22 08:41 06/19/22 08:41 Physical Exam Const alert, oriented x3 and no apparent distress General Appearance: cooperative and comfortable HEENT normocephalic Eyes General Eye: normal appearance of both eyes Neck General: normal visual inspection Lymph Lymphatic: no lymphadenopathy noted and no lymphedema noted Chest inspection of chest normal Resp normal respiratory effort Cardio regular rate and regular rhythm Extremity normal capillary refill, no joint enlargement, no calf tenderness and no pedal edema Skin no rashes or lesions noted, skin turgor normal and no jaundice Wound Narrative: Right foot: Subfourth metatarsal ulceration measuring 0.5 cm x 0.5 cm x 0.2 cm with hyperkeratotic rim. Subfifth metatarsal ulceration has healed, no signs of infection. Callus/hyperkeratotic tissue that is preulcerative noted to the subfirst metatarsal head. No signs of infection to ulcerative sites Left foot: Callus/hyperkeratotic tissue that is pre-ulcerative noted to the subfirst metatarsal head.?No signs of infection. Ulceration noted to the subfourth metatarsal head with surrounding hyperkeratosis ulceration measures 0.4 cm x 0.3 cm x 0.1 cm. No signs of infection. Neuro oriented x3 and moves all extremities Debridement Note Debridement Note Wound debrided: Sub fourth metatarsal Laterality: Right Wound Grade/Stage: Morales stage I Type of Debridement: Excisional debridement Anesthesia Used: 5% Lidocaine Gel Depth: Down to and including healthy tissue and in the subcutaneous layer Percentage of wound debrided: 100 Instrument Used: 3mm curette and - (313 blade) Tissue Removed: Fibrous, devitalized subcutaneous, biofilm, slough Severity: Fat Layer Exposed Amount of bleeding with debridement: Mild Bleeding Controlled with: Compression and gauze Patient tolerated procedure: Patient tolerated procedure well Post-Debridement Measurements and Additional Note: Post-Debridement Measurements/Treatment - Nurse 1 - General Ulcer Assessment Start: 06/12/22 08:25 Freq: Status: Active Protocol: FAB Activity Type Activity Date Activity User E-sign Co-sign Detail Recorded Client Recorded Date Recorded By Document 06/12/22 08:26 ADENIKE [id number] 06/12/22 08:27 KR Document 06/19/22 08:41 ADENIKE [id number] 06/19/22 08:48 KR 06/12/22 06/19/22 08:26 08:41 - Today's Visit Information Type of service Follow-up Visit Follow-up Visit (Physician/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 ROLLING 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 SETTER (Physician/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 Any new allergies or adverse reactions No No Had a fall/change in ADL's that may No No increase risk of falls Signs or symptoms of abuse and/or No No neglect since last visit Have you been in the hospital since your No No last visit? Has dressing in place as prescribed Yes Yes Has compression in place as prescribed N/A N/A Has offloadiing in place as prescribed N/A N/A Experienced any changes in pain level or No No management Left Footwear Regular Shoe Regular Shoe Right Footwear Regular Shoe Regular Shoe Pain Scale: 0-10 Numeric Is Patient Pain Free? Yes Yes WC - Nurse 1 - General Ulcer Measurement Start: 06/12/22 08:25 Freq: Status: Active Protocol: Activity Type Activity Date Activity User E-sign Co-sign Detail Recorded Client Recorded Date Recorded By Document 06/12/22 08:26 ADENIKE [id number] 06/12/22 08:27 KR Document 06/19/22 08:41 ADENIKE [id number] 06/19/22 08:48 KR 06/12/22 06/19/22 08:26 08:41 Wound Center Nurse 1 #2 Left Plantar -Current Size (cm) - Length 0.8 -Current Size (cm) - Width 0.8 -Current Size (cm) - Depth 0.2 -Total Square Cm 0.64 -Exudate Amt Small -Exudate Type Serosanguineous -Wound Margin Distinct, Outline Attached -Granulation Amt Medium (34-66%) -Granulation Quality Zayante -Necrosis Amt Small (1-33%) -Necrotic Tissue Type Adherent Slough -Texture ([place]land[place]-wound Skin Appearance) Assessed, Scarring -Moisture ([place]-wound Skin Appearance) No Abnormality, Assessed -Color ([place]-wound Skin Appearance) No Abnormality, Assessed -Temperature ([place]-wound Skin No Abnormality Appearance) (Pt Warm) -Tenderness on Palpation ([place]land[place]-wound No Skin Appearance) -Ulcer Cleansing Rinsed/ Irrigated with Saline -Foul Odor after Cleansing No -Anesthetic Used 5% Lidocaine Gel #1 Right Foot -Current Size (cm) - Length 1.2 1 -Current Size (cm) - Width 0.5 0.5 -Current Size (cm) - Depth 0.6 0.3 -Total Square Cm 0.60 0.5 -Exudate Amt Small Small -Exudate Type Serosanguineous Serosanguineous -Wound Margin Distinct, Distinct, Outline Outline Attached Attached -Granulation Amt Small (1-33%) Medium (34-66%) -Granulation Quality Zayante Zayante -Necrosis Amt Small (1-33%) Small (1-33%) -Necrotic Tissue Type Adherent Slough Adherent Slough -Texture ([place]lande-wound Skin Appearance) Assessed,Callus ,Scarring -Moisture ([place]-wound Skin Appearance) No Abnormality, Assessed -Color ([place]lande-wound Skin Appearance) No Abnormality, No Abnormality, Assessed Assessed -Temperature ([place]land[place]-wound Skin No Abnormality Appearance) (Pt Warm) -Tenderness on Palpation ([place]-wound No No Skin Appearance) -Ulcer Cleansing Rinsed/ Rinsed/ Irrigated with Irrigated with Saline Saline -Foul Odor after Cleansing No No -Anesthetic Used 5% Lidocaine 5% Lidocaine Gel Gel WC - Nurse 2 - General Ulcer CM Notes Start: 06/12/22 08:25 Freq: Status: Active Protocol: Activity Type Activity Date Activity User E-sign Co-sign Detail Recorded Client Recorded Date Recorded By Document 06/12/22 09:33 BRITTANY [id number] 06/12/22 09:34 BRITTANY 06/12/22 09:33 Wound Center Nurse 2 -Time 08:44 -Correct Patient Yes -Correct Side, Site, Position Yes -Correct Procedure Yes -Procedure Performed Yes -Type of Procedure Debridement -Clinical Debridement Subcutaneous -Tissue Removed Subcutaneous -Post Debridement (cm) - Length 1.2 -Post Debridement (cm) - Width 0.5 -Post Debridement (cm) - Depth 0.6 -Total Square (Post) (cm) 0.60 -Area of Debridement (cm) - Length 1.2 -Area of Debridement (cm) - Width 0.5 -Total Square (Area) (cm) 0.60 -Tunneling No -Undermining/Tunneling No -Circular Undermining No -Wound/Ulcer Outcome Not Healed -Ulcer Cleansing Rinsed/ Irrigated with Saline -Foul Odor after Cleansing No -Bioengineered Tissue No -Bleeding Controlled with Pressure -Treatment Response Procedure Tolerated Well -Debridement - Subq, 1st 20sq cm Yes Pain Scale: 0-10 Numeric Is Patient Pain Free? Yes WC - Nurse 3 - General Ulcer D/C NN Start: 06/12/22 08:25 Freq: Status: Active Protocol: Activity Type Activity Date Activity User E-sign Co-sign Detail Recorded Client Recorded Date Recorded By Document 06/12/22 09:06 ADENIKE [id number] 06/12/22 09:07 ADENIKE 06/12/22 09:06 Wound Care Nurse 3 #1 Right Foot -Ulcer Cleansing Rinsed/ Irrigated with Saline -Primary Dressing Applied C Hydrogel ($), Promogran Geri Matter -Primary Dressing Covered/Secured with Dry Gauze, Secured with Tape -Promogran Geri Matter 1 Pain Scale: 0-10 Numeric Is Patient Pain Free? Yes WC - Visit Discharge Discharge Condition Stable Ambulatory Status Ambulatory Transportation Private Auto Additional Wound Wound debrided: Subfourth metatarsal Laterality: Left Wound Grade/Stage: Morales stage I Type of Debridement: Excisional debridement Anesthesia Used: 5% Lidocaine Gel Depth: Down to and including healthy tissue and in the subcutaneous layer Percentage of wound debrided: 100 Instrument Used: 3mm curette and - (313 blade) Tissue Removed: Fibrous, devitalized subcutaneous, biofilm, slough Severity: Fat Layer Exposed Amount of bleeding with debridement: Mild Bleeding Controlled with: Compression and gauze Patient tolerated procedure: Patient tolerated procedure well Assessment/Plan Assessment/Plan (1) Non-pressure chronic 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: CODE(S): L97.522 - Non-pressure chronic 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 (2) Chronic ulcer of right foot with fat layer exposed: CODE(S): L97.512 - Non-pressure chronic ulcer of other part of right foot with fat layer exposed (3) Diabetes: CODE(S): E11.9 - Type 2 diabetes mellitus without complications (4) Callus under metatarsal head: CODE(S): L84 - Corns and callosities (5) Equinus deformity of right foot: CODE(S): M21.6X1 - Other acquired deformities of right foot (6) Equinus deformity of left foot: CODE(S): M21.6X2 - Other acquired deformities of left foot (7) Fat pad atrophy of foot: CODE(S): L90.9 - Atrophic disorder of skin, unspecified (8) Hammer toe of right foot: CODE(S): M20.41 - Other hammer toe(s) (acquired), right foot (9) Hammertoe of left foot: CODE(S): M20.42 - Other hammer toe(s) (acquired), left foot PLAN: Plan Patient seen and evaluated Left foot: Pre-ulcerative hyperkeratotic lesions subfirst metatarsal head, this was debrided with a 313 blade. No underlying wound. Ulceration subfourth metatarsal head measures 0.4 cm x 0.3 cm x 0.1 cm. Ulceration underwent debridement as noted in clinical panel above. No signs of infection. He is currently offloading with surgical shoe with Pegasus offloading insert.? However I doubt he is wearing his offloading shoe to the left foot as he has history of noncompliance and going barefoot or in basketball shoes. Right foot: Ulceration subfourth metatarsal head measuring 0.5 cm x 0.5 cm x 0.2 cm.? Ulceration demonstrates no signs of infection with a good granular base and a hyperkeratotic rim.? Ulceration subfifth metatarsal head has healed today with hyperkeratotic covering, this was debrided sharply with a 313 blade with no underlying wound present. Ulceration sites underwent debridement as noted in clinical panel above.? Preulcerative hyperkeratotic lesion subfirst metatarsal head.?No signs of infection.? He is currently offloading in a CAM boot with Pegasus offloading insert.? I suspect noncompliance at this site as well as stated above. Ulceration sites dressed with Geri, hydrogel, dry sterile dressing. Ulcerative sites are improving with his physical therapy and offloading as a demonstrate reduction in size versus previous visit. I discussed with him today proper glycemic control, continuing with not smoking, and wearing his offloading shoes at all times.? Patient has history of being noncompliant in wearing his offloading shoes to both feet preferring basketball shoes or going barefoot/socks. I discussed with him again today that being barefoot or wearing only socks does not provide adequate protection to the foot and places him at higher risk of wounds. I also stated that being diabetic with wounds places him at higher risk of infection which may lead to loss of limb.? I also discussed how pressure reduction at the sites is essential and is the sanches to healing his wounds. He voices understanding of our discussion today. I discussed the need to return for weekly debridement and not return whenever he feels like it. On examination he is also noted to have an equinus deformity of both legs with decreased fat pad to the forefoot.? He is attending physical therapy sessions to aid in improving his range of motion/stretching as well as developing a home exercise program to improve his range of motion in dorsiflexion to decrease forefoot pressure. He feels this is going well. I discussed with him that if this does not work to aid in offloading that we may have to undergo a tendo Achilles lengthening to aid in decreasing pressure to the forefoot. Given his noncompliance of not adequately staying off his feet enough/wearing offloading shoes, I worry he may not be fully compliant post surgery. The following work up and care recommendations were made: Dressing: Geri, hydrogel, dry sterile dressing right foot Wash: Soap and water Tissue growth optimization: Geri and hydrogel Offload: Continue offloading in cam boot with plantar offloading pad to the right foot in surgical shoe with plantar offloading pad to the left foot Vascular: Palpable pedal pulses bilateral Edema: No pedal edema noted Infection: No signs of infection noted Pain: Pain is well controlled Host factors: DM type II, fat pad atrophy, equinus deformity bilateral, chronic marijuana use ? I answered all the patient's questions.? To return to the wound healing center in 1 week or call sooner if the patient has any questions or concerns. Note: [email or web address] speech recognition manager of disaster recovery software was used to create portions of this document. Sound-alike and misspelled words, as well as other manager of disaster recovery errors may be contained in the documentation.
== END 2022-06-25 23:59 | disposition home or self-care (01) ==
LOC: WC 08:15
PROVIDERS: PCP Family Medicine; Visit Provider Student in an Organized Health Care Education/Training Program
DX: E11.621 Type 2 diabetes mellitus with foot ulcer (principal); L97.512 Non-pressure chronic ulcer of other part of right foot with fat layer exposed; L97.522 Non-pressure chronic 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; Z87.891 Personal history of nicotine dependence; M21.6X1 Other acquired deformities of right foot; M21.6X2 Other acquired deformities of left foot; M20.42 Other hammer toe(s) (acquired), left foot; M20.41 Other hammer toe(s) (acquired), right foot; L90.9 Atrophic disorder of skin, unspecified; L84 Corns and callosities
CPT/HCPCS: 11042

== ENCOUNTER 2024-07-27 09:24 | Outpatient (RCR) | payer MEDICAID, SELFPAY ==
--- NOTE | 2024-07-27 13:34 | HP.FCE ---
Task Lift Floor (Occasional 1-33% of Day): 35# Floor (Frequent 34-66% of Day): 18# Floor (Constant 67-100% of Day): NA Floor PDL: Light-Medium Knee (Occasional 1-33% of Day): 35# Knee (Frequent 34-66% of Day): 18# Knee (Constant 67-100% of Day): NA Knee PDL: Light-Medium Waist (Occasional 1-33% of Day): 35# Waist (Frequent 34-66% of Day): 18# Waist (Constant 67-100% of Day): NA Waist PDL: Light-Medium Shoulder (Occasional 1-33% of Day): 35# Shoulder (Frequent 34-66% of Day): 18# Shoulder (Constant 67-100% of Day): 7# Shoulder PDL: Light-Medium Overhead (Occasional 1-33% of Day): 20# Overhead (Frequent 34-66% of Day): 10# Overhead (Constant 67-100% of Day): NA Overhead PDL: Light Comments: Light- Medium Physical demand level for lifting at floor, knee, and waist levels Light- Medium Physical demand level for lifting at shoulder Light Physical demand level for lifting at overhead Work Activity/Posture Bending: Frequent Ability (34-66% of day) Comments: with use of external support Squatting: Occasional Ability (1-33% of day) Comments: with external support (low ability) Kneeling: No Ablility (0% of day) Reaching out: Constant Ability (67-100% of day) Comments: sitting Reaching up: Constant Ability (67-100% of day) Comments: sitting Sitting: Constant Ability (67-100% of day) Walking: No Ablility (0% of day) Standing: No Ablility (0% of day) Reference Reference: Duration Sedentary Sedentary Light Light Light Medium Medium Medium Heavy Very Heavy Heavy Occasional (0-33% of day) Frequent (34-66% of day) Constant (67-100% of day) 10 # Negligible Negligible 15 # 8 # Negligible 20 # 10# Negli. 35 # 18 # 7 # 50 # 25 # 10 # 75 # 100 # >100 # 38 # 50 # >50 # 15 # 20 # >20 # Patient Information Height: 1.98 m Weight:: 107.955 kg Hand Dominance: right Medical History Medical History Including Restrictions: Pt states he was dx with DMII in 2011. pt states he underwent a biopsy (January 2023) to see what was cause calluses (for 10 years) and ulcers ( 4 year issue) due to infection complications pt had to have a portion of his left foot removed. pt currently walking in surgical shoe. pt states his right foot also has ulcer that he has been struggling with for 4 to 5 years and is currently in a walking boot. pt states his branch rental manager has told him to stay off of his feet as much as he can. pt states he does use tobacco products on and off for about 20 years. Diagnoses Diagnoses: DMII dx in 2011 controlled with insulin ADHD dx as a child ( not currently on medication or treatment) Hammer toe Symptoms Symptoms: Ulcers numbness in feet decrease balance Pain bilateral feet Pain Pain: pt states both feet are painful- pt does not take pain medication. pt states sitting pain in feet are 3-4/10. with ambulation pain does increase. Work History Work History: Pt states the last time he worked was in 2021 and worked for [employer] on and off for about a year. pt states due to the ulcers he was unable to keep working for [employer]. 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 pt states he left there because he was getting surgery for his eyes (cataract) Behavioral Behavioral: pt cooroperative. ADLS ADLS: Pt lives with his mother in a two story home with 5 entry steps with one handrail. Pt states his mom can help him as needed. pt states bathroom is on 2nd floor with full flight of stairs one handrail. Pt states he uses a tub/shower combo with shower chair due to difficulty standing. pt states one grab bar. pt ambulates IND. Shower at [facility] Pt had someone drive him to this apt. pt states he does not drive. pt states his mom does work outside of home and he can get himself to and from bathroom and get meals. 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 ROM: pt demo with ROM WNL Strength: Fet2 Peak Force shoulder flexion right 26# left 24# Shoulder extension right 30# left 27# Biceps right 29# left 33# Triceps right 33# left 30# Hip flexion right 37# left 24# Quadriceps right 26# left 15# with pain Hamstrings right 31cm left 13# with pain Right Gummed Tape Press Operator Strength Average: 76.66 Right Gummed Tape Press Operator Strength Percentile: 4% Left Gummed Tape Press Operator Strength Average: 70.00 Left Gummed Tape Press Operator Strength Percentile: 2.9% Right Lateral Pinch Average: 20.00 Right Lateral Pinch Percentile: 25% Left Lateral Pinch Average: 19.33 Left Lateral Pinch Percentile: 25% Right Tripod Pinch Average: 20.66 Right Tripod Pinch Percentile: 50% Left Tripod Pinch Average: 19.33 Left Tripod Pinch Percentile: 75% Sensation: pt reports numbness in feet more from his DMII ( neuropathy) Fine Motor: 9 hole peg testing right 25. sec 10% for age left 25.9 sec. 10% for age Balance: 7 functional reach prior to LOB forward reach pt demo a decrease in balance to Good /Fair + feel this is due to wearing walking boot on pts right LE and surgical shoe on left. pt states he does not ambulate without his boot or shoe on- noted if he carries item with tow hands a decrease in gait speed. Pt did use external support with all standing tasks. Non Material Handling Activities Bending: pt demo the ability to bend forward 3/3x, 10/10x and 10/10x rapidly with use of external support. pt states feet sore heart rate 110 following pt can bend forward on frequent ability with use of external support Squatting: pt demo the ability to squat 3/3x with use of external support heart rate 102 pt demo a limited modified squat with increase in pain of LE due to ulcers Kneeling: unable Reaching out/up: pt completed reaching up/out 3/3x, 10/10x and 10/10x rapidly heart rate 101 following pt can reach out/up on constant ability while sitting Walking: very low ability due dr restriction pt ambulated in and out of facility at [facility] gait [facility]. wearing boot and surgical shoe this does cause a change in leg length and step increasing pts risk of falls. pt ambulated a total of 330 feet in and out of this clinic IND. Standing: NA Sitting: pt demo the ability to sit for 55min with no apparent discomfort. Pt can sit on constant ability Climbing Stairs: pt demo the ability to ascend and descend 10 steps with use of bilateral hand rails and reciprocal step pattern. pt does focus and his step pattern is slower due to getting boots to fit on step- therapist noted increase use of UE during task. Dynamic Occasional Lifting Capacity Floor Lift: pt demo the ability to lift 35# maximally from this level with poor lifting mechanics. Knee Lift: pt demo the ability to lift 35# maximally from this level with poor lifting mechanics. Waist Lift: pt demo the ability to lift 35# maximally from this level with fair lifting mechanics. Shoulder Lift: pt demo the ability to lift 35# maximally from this level with fair lifting mechanics. Overhead Lift: pt demo the ability to lift 25# maximally from this level with fair lifting mechanics. Carrying: pt demo the ability to carry 25# for 24 feet. Comments: pt did report increase in left calf due to ulcer. pt demo no physical limitations of using hands or upper extremities while sitting. pts limitations are standing and ambulation ( see podiatry restrictions in pts PMH)
--- NOTE | 2024-07-27 13:34 | HP.OTFCE.D ---
FCE D/C Summary Discharge text: MEENU Brianna BOLIVAR was seen for a one time visit for an FCE on 07/27/24 and is discharged.
== END 2024-07-27 19:00 | disposition home or self-care (01) ==
LOC: OT 09:24
PROVIDERS: PCP Internal Medicine; Referring Provider Internal Medicine; Visit Provider Internal Medicine
DX: Z02.71 Encounter for disability determination (principal)
CPT/HCPCS: 97750